=== PATIENT | female | born 1945 | race Caucasian/White ===

== ENCOUNTER 2017-12-24 12:04 | Emergency (ER) | payer MEDICARE, OTHER ==
[~2017-12-24] VITALS: Ht 166.4 cm; Wt 72.0 kg
[~2017-12-24 12:04] MED LIST: AMOXICILLIN500 MG PO; ATIVAN0.5 MG PO; AUGMENTIN875TAB PO; BENZONATATE200 MG PO; CLARITIN10 M1 PO; DULOXETINE HCL60 MG; FLOVENT HFA220 MCG IN; IMITREX25 MG PO; LEVOTHYROXINE50 MCG PO; LOSARTAN/HCT1 TA1 PO; LOVASTATIN40 MG PO; MAALOX/BEN PO; MUCINEX600 MG PO; PREDNISONE20 MG PO; PROAIR HFA IN; SAVELLA100 MG PO; SYMBICORT 80-4.5MCG; TEGRETOL XR200 MG; TRAZODONE HCL150 MG PO; VALTREX1 GM PO; VERAMYST27.5 MCG; ZOLOFT100 MG PO
[2017-12-24 13:52] LABS: INFLUENZA A POSITIVE (NONE DETECT); INFLUENZA B NONE DETECTED (NONE DETECT)
[2017-12-24 14:03] VITALS: BP 116/54
== END 2017-12-24 14:15 | disposition home or self-care (01) ==
LOC: ED 12:04
PROVIDERS: Family Medicine
DX: J10.1 Influenza due to other identified influenza virus with other respiratory manifestations (principal); R05 Cough; R51 Headache; R09.89 Other specified symptoms and signs involving the circulatory and respiratory systems; R53.1 Weakness; M79.1 Myalgia

== ENCOUNTER 2018-01-27 02:18 | Observation (INO) | payer MEDICARE, OTHER ==
[~2018-01-27] VITALS: Ht 160 cm; Wt 71.6 kg
[~2018-01-27 02:18] MED LIST changes: -DULOXETINE HCL60 MG; +DULOXETINE HCL60 MG PO; -TEGRETOL XR200 MG; +TEGRETOL XR200 MG PO; -TRAZODONE HCL150 MG PO; +TRAZODONE50 MG PO
[2018-01-27] MEDS ORDERED: GABAPENTIN100 MG PO ×2 (02:39→11:10)
--- NOTE | 2018-01-27 02:41 | NUR ---
PT WAS BROUGHT STRAIGHT BACK AND TRIAGED. EKG DONE IV SITE STARTED AND BLOOD DRAWN. DR RAMOS AT BEDSIDE.
--- NOTE | 2018-01-27 03:00 | NUR ---
ASA AND NTG GIVEN PER ORDER. PT'S PAIN DOWN TO 2/10 PRIOR TO MEDICATION.
[2018-01-27 03:12] LABS: HEMATOCRIT 37.6 % (37.0-47.0); HEMOGLOBIN 12.3 g/dl (12.0-16.0); IMMATURE GRANULOCYTES 0.3 % (0.0-1.0); MEAN CELL VOLUME 89.5 fL CALC (80.0-100.0); MEAN CORPUSCULAR HGB 29.3 pG CALC (26.0-32.0); MEAN CORPUSCULAR HGB CONC 32.7 g/L CALC (32.0-36.0); NEUT# 3.54 thou/uL (2.00-7.15); RED BLOOD COUNT 4.2 mill/uL (4.20-5.60)
[2018-01-27 03:23] LABS: ALKALINE PHOSPHATASE 95 u/l (38-126); AMYLASE 77 u/l (30-110); BILIRUBIN, TOTAL 0.4 mg/dL (0.0-1.4); BUN 18 mg/dL (8-23); BUN/CREATININE RATIO 19 (12-20 (CALC)); CARBON DIOXIDE 28 mmol/l (22-30); CHLORIDE 103 mmol/l (95-108); GFR 54 ML/MIN (>=60 (CALC)); GFR FOR AFR.AMER. > 60 ML/MIN (>=60 (CALC)); LIPASE 191 u/l (23-300); SGOT/AST 23 u/l (9-36); SGPT/ALT 26 u/l (11-66); SODIUM 143 mmol/l (137-146); TOTAL PROTEIN 7.4 g/dL (6.3-8.2)
[2018-01-27 03:26] LABS: ANION GAP 16 (6-22 (CALC))
[2018-01-27 03:27] LABS: POTASSIUM 3.5 mmol/l (3.5-5.1)
--- NOTE | 2018-01-27 03:30 | NUR ---
PT PAIN FREE.
[2018-01-27 03:35] LABS: MYOGLOBIN 75 ng/mL (0 - 62)
--- NOTE | 2018-01-27 04:15 | NUR ---
PT PAIN FREE/ BED ASSIGNED 290 WILL GO UP AT CHANGE OF SHIFT.
--- NOTE | 2018-01-27 04:35 | NUR ---
CALLED TO MED/SURG FOR HOSPITAL BED FOR PT.
--- NOTE | 2018-01-27 05:35 | NUR ---
PT SLEEPING ON STRETCHER, OFFERED BLANKET AND HE DECLINED.
--- NOTE | 2018-01-27 06:27 | NUR ---
CALLED FLOOR AND REQUESTED DAY SHIFT RN CALL FOR REPORT SOON THEY ARRIVE.
--- NOTE | 2018-01-27 06:54 | NUR ---
REPORT GIVEN TO MICAH DWYER. WILL TRANSPORT AFTER SHIFT CHANGE.
[2018-01-27 07:54] VITALS: BP 152/60
--- NOTE | 2018-01-27 07:57 | NUR ---
PT TRANSPORTED TO [facility] ON STRETCHER, WITH RN. RÍOS ATTACHED
--- NOTE | 2018-01-27 08:00 | NUR ---
PT HAS BEEN TRANSPORTED FROM ER.
--- NOTE | 2018-01-27 09:00 | NUR ---
PT HAS BEEN AWAKE AND RELAXING IN THE CHAIR. NO DISTRESS NOTED. CONTINUE TO OBSERVE AND MONITOR.
[2018-01-27 11:56] LABS: URINE BILIRUBIN - DIPSTICK NEGATIVE (NEGATIVE); URINE BLOOD DIPSTICK NEGATIVE (NEGATIVE); URINE COLOR YELLOW; URINE GLUCOSE - DIPSTICK NEGATIVE (NEGATIVE); URINE KETONE NEGATIVE (NEGATIVE); URINE LEUK ESTERASE TRACE (NEGATIVE); URINE NITRITE - DIPSTICK NEGATIVE (Negative); URINE PH 5.5 (4.5-8.0); URINE PROTEIN - DIPSTICK NEGATIVE (NEG-TRACE); URINE SPECIFIC GRAVITY 1.015; URINE UROBILINOGEN - DIPSTICK 0.2 E.U./dL (0.2)
--- NOTE | 2018-01-27 13:00 | NUR ---
PT IS RELAXING IN BED WITH MO DISTRESS NOTED. FAMILY IN THE ROOM. WAITING ON THE DR TO COME AND POSSIBLY DISCHARGE PT.
[2018-01-27 14:44] LABS: URINE CLARITY CLEAR
[2018-01-27 15:33] VITALS: BP 124/69
== END 2018-01-27 17:50 | disposition home or self-care (01) ==
LOC: ED 02:18 → ED-I 03:00 → ED 03:49 → MS2 03:50
PROVIDERS: Emergency Medicine; ADMIT Internal Medicine; ATTEND Internal Medicine
DX: R07.9 Chest pain, unspecified (principal); I10 Essential (primary) hypertension; E03.9 Hypothyroidism, unspecified; M79.7 Fibromyalgia

== ENCOUNTER → 2019-01-09 | Outpatient (REF) | payer MEDICARE, OTHER ==
[~2019-01-09] MED LIST changes: +GABAPENTIN100 MG PO
== END | disposition home or self-care (01) ==
LOC: MAMMO 13:10
PROVIDERS: ATTEND Internal Medicine
DX: Z12.31 Encounter for screening mammogram for malignant neoplasm of breast (principal); N95.1 Menopausal and female climacteric states

== ENCOUNTER 2022-02-20 14:59 | Emergency (ER) | payer MEDICARE, OTHER ==
[2022-02-20] VITALS (8 sets, daily range): BP systolic 120–157; BP diastolic 58–85
[~2022-02-20] VITALS: Ht 160 cm; Wt 78.3 kg
[2022-02-20 15:57] LABS: HEMATOCRIT 38.2 % (37.0-47.0); HEMOGLOBIN 12.7 g/dl (12.0-16.0); IMMATURE GRANULOCYTES 0.3 % (0.0-5.0); MEAN CELL VOLUME 91.6 fL CALC (80.0-100.0); MEAN CORPUSCULAR HGB 30.5 pG CALC (26.0-32.0); MEAN CORPUSCULAR HGB CONC 33.2 g/dL CAL (32.0-36.0); NEUT# 10.43 thou/uL (2.00-7.15); RED BLOOD COUNT 4.17 mill/uL (4.20-5.60); RED CELL DISTRI WIDTH 12.4 % (11.5-15.5)
[2022-02-20 16:14] LABS: ALBUMIN 4.2 g/dL (3.2-5.0); ALKALINE PHOSPHATASE 98 u/l (38-126); BUN 14 mg/dL (8-23); BUN/CREATININE RATIO 19 (12-20 (CALC)); CARBON DIOXIDE 27 mmol/l (22-30); CHLORIDE 97 mmol/l (95-108); CREATININE 0.7 mg/dL (0.5-1.0); GFR > 60 ML/MIN (>=60 (CALC)); GFR FOR AFR.AMER. > 60 ML/MIN (>=60 (CALC)); LIPASE 81 u/l (23-300); POTASSIUM 3.9 mmol/l (3.5-5.1); SGOT/AST 30 u/l (9-36); TOTAL PROTEIN 7.5 g/dL (6.3-8.2)
[2022-02-20 16:17] LABS: ANION GAP 9 (6-22 (CALC)); BILIRUBIN, TOTAL 0.7 mg/dL (0.0-1.4); SODIUM 129 mmol/l (137-146)
[2022-02-20] MEDS ORDERED: LIDOCAINE HCL VIS2 % PO (17:03)
[2022-02-20] MEDS ORDERED: AMOX/K CLAV875 M1 PO (17:03)
== END 2022-02-20 17:06 | disposition home or self-care (01) ==
LOC: ED 14:59
DX: J40 Bronchitis, not specified as acute or chronic (principal); J02.9 Acute pharyngitis, unspecified; I10 Essential (primary) hypertension; E03.9 Hypothyroidism, unspecified; M79.7 Fibromyalgia; Z20.822 Contact with and (suspected) exposure to COVID-19

== ENCOUNTER 2023-11-01 11:05 | Emergency (ER) | payer MEDICARE, OTHER ==
[~2023-11-01] VITALS: Ht 165.1 cm; Wt 70.3 kg
[~2023-11-01 11:05] MED LIST changes: +AMOX/K CLAV875 M1 PO; +LIDOCAINE HCL VIS2 % PO
[2023-11-01 11:27] VITALS: BP 138/65
[2023-11-01 11:31] VITALS: BP 137/63
[2023-11-01 11:49] LABS: BASO% 0.4 % (0-3); EOS% 3.1 % (0-8); HEMATOCRIT 36.1 % (37.0-47.0); HEMOGLOBIN 11.7 g/dl (12.0-16.0); IMMATURE GRANULOCYTES 0.4 % (0.0-5.0); LYMPH% 28.8 % (15-41); MEAN CELL VOLUME 92.3 fL CALC (80.0-100.0); MEAN CORPUSCULAR HGB 29.9 pG CALC (26.0-32.0); MEAN CORPUSCULAR HGB CONC 32.4 g/dL CAL (32.0-36.0); MONO% 8.8 % (2-13); NEUT# 2.64 thou/uL (2.00-7.15); NEUT% 58.5 % (42-76); RED BLOOD COUNT 3.91 mill/uL (4.20-5.60); RED CELL DISTRI WIDTH 12.3 % (11.5-15.5)
[2023-11-01] MEDS ORDERED: ROSUVASTATIN CAL5 MG PO (12:06)
[2023-11-01] MEDS ORDERED: GABAPENTIN300 M2 PO (12:08)
[2023-11-01] MEDS ORDERED: VITAMIN D 50 MCG PO (12:08)
[2023-11-01] MEDS ORDERED: LOPRESSOR25 M1 PO (12:09)
[2023-11-01] MEDS ORDERED: ZETIA10 MG PO (12:13)
[2023-11-01] MEDS ORDERED: ASPIRIN 81 LOW81 MG PO (12:16)
[2023-11-01 12:22] LABS: ALBUMIN 3.8 g/dL (3.2-5.0); ALKALINE PHOSPHATASE 73 u/l (38-126); ANION GAP 13 (6-22 (CALC)); BILIRUBIN, TOTAL 0.4 mg/dL (0.02-1.3); BUN 14 mg/dL (8-23); BUN/CREATININE RATIO 19 (12-20 (CALC)); CARBON DIOXIDE 26 mmol/l (22-30); CHLORIDE 98 mmol/l (95-108); CREATININE 0.7 mg/dL (0.5-1.0); GFR FOR AFR.AMER. > 60 ML/MIN (>=60 (CALC)); GFR OTHER RACES > 60 ML/MIN (>=60 (CALC)); LIPASE 142 u/l (23-300); POTASSIUM 4.1 mmol/l (3.5-5.1); SGOT/AST 30 u/l (9-36); SODIUM 133 mmol/l (137-146); TOTAL PROTEIN 6.2 g/dL (6.3-8.2)
[2023-11-01] MEDS ORDERED: MORPHINE SULFAT10 M1 PO (13:05)
[2023-11-01] MEDS ORDERED: ZOFRAN4 MG/TAB PO (13:05)
[2023-11-01] MEDS ORDERED: MORPHINE SUL15 MG PO ×2 (13:39→13:49)
[2023-11-01 13:53] VITALS: BP 137/63
== END 2023-11-01 13:54 | disposition home or self-care (01) ==
LOC: ED 11:05
PROVIDERS: Family Medicine
DX: R07.81 Pleurodynia (principal); I10 Essential (primary) hypertension; E03.9 Hypothyroidism, unspecified; W19.XXXA Unspecified fall, initial encounter

== ENCOUNTER 2024-08-05 12:39 | Emergency (ER) | payer MEDICARE, OTHER ==
[~2024-08-05] VITALS: Ht 165.1 cm; Wt 71.0 kg
[2024-08-05] VITALS (14 sets, daily range): BP systolic 106–160; BP diastolic 59–78
[~2024-08-05 12:39] MED LIST changes: +ASPIRIN 81 LOW81 MG PO; +GABAPENTIN300 M2 PO; +LOPRESSOR25 M1 PO; +MORPHINE SUL15 MG PO; +MORPHINE SULFAT10 M1 PO; +ROSUVASTATIN CAL5 MG PO; +VITAMIN D 50 MCG PO; +ZETIA10 MG PO; +ZOFRAN4 MG/TAB PO
[2024-08-05] MEDS ORDERED: KETOROLAC TROMETHAMINE 15 MG/ML SDV IV ONE (12:50)
[2024-08-05] MEDS ORDERED: ONDANSETRON HCl 4 MG/2 ML SDV IV ONE (12:50)
[2024-08-05 13:35] LABS: BASO% 0.3 % (0-3); EOS% 0.5 % (0-8); HEMATOCRIT 42.7 % (37.0-47.0); HEMOGLOBIN 12.9 g/dl (12.0-16.0); IMMATURE GRANULOCYTES 0.4 % (0.0-5.0); LYMPH% 6.5 % (15-41); MEAN CELL VOLUME 97.9 fL CALC (80.0-100.0); MEAN CORPUSCULAR HGB 29.6 pG CALC (26.0-32.0); MEAN CORPUSCULAR HGB CONC 30.2 g/dL CAL (32.0-36.0); MONO% 6.4 % (2-13); NEUT# 8.79 thou/uL (2.00-7.15); NEUT% 85.9 % (42-76); RED BLOOD COUNT 4.36 mill/uL (4.20-5.60); RED CELL DISTRI WIDTH 12.7 % (11.5-15.5)
[2024-08-05 13:47] LABS: CREATININE 0.8 mg/dL (0.5-1.0); POTASSIUM 4.2 mmol/l (3.5-5.1)
[2024-08-05 13:48] LABS: ALBUMIN 4.3 g/dL (3.2-5.0); BILIRUBIN, TOTAL 0.9 mg/dL (0.02-1.3); TOTAL PROTEIN 7.7 g/dL (6.3-8.2)
[2024-08-05] MEDS ORDERED: MORPHINE SULFATE 4 MG/ML VIAL IV ONE ×2 (15:10→17:00)
[2024-08-05] MEDS ORDERED: SODIUM CHLORIDE 0.9% 1,000 ML IV ONE (17:00)
== END 2024-08-05 17:40 | disposition short-term general hospital (02) ==
LOC: ED 12:39
PROVIDERS: Nurse Practitioner
DX: S72.001A Fracture of unspecified part of neck of right femur, initial encounter for closed fracture (principal); I10 Essential (primary) hypertension; E03.9 Hypothyroidism, unspecified; M79.7 Fibromyalgia; W01.0XXA Fall on same level from slipping, tripping and stumbling without subsequent striking against object, initial encounter; Y92.009 Unspecified place in unspecified non-institutional (private) residence as the place of occurrence of the external cause